=== PATIENT | male | born 1985 | race Caucasian/White ===

== ENCOUNTER → 2021-11-23 15:20 | Outpatient (CLI) | payer BC, SELFPAY ==
[2021-11-23 18:26] LABS: ALB/GLOB Ratio 1.1 RATIO (0.9-2.4); AST(SGOT) 123 U/L (15-37); Alanine Aminotransfer ALT/SGPT 303 U/L (16-61); Albumin, Serum 4.1 g/dL (3.2-5.0); Alkaline Phosphatase 62 U/L (45-117); Anion Gap 7 (5-15); BUN 12 mg/dL (7-18); Chloride 108 mmol/L (98-107); EST Glomerular Filtration Rate 89 mL/min (>60); Est Glom Filt Rate - Afr Amer 108 mL/min (>60); Ferritin 817 ng/mL (26-388); Globulin 3.7 g/dL (2.2-4.2); Glucose 91 mg/dL (74-106); Protein, Total 7.8 g/dL (6.4-8.2); Sodium Level 140 mmol/L (136-145)
[2021-11-25 13:07] LABS: ANTINUCLEAR ANTIBODIES DIRECT Negative (Negative)
[2021-11-25 22:54] LABS: AFP, Tumor Marker 4.4 ng/mL (0.0-8.3); Anti-Smooth Muscle ABS 23 Units (0-19)
[2021-11-25 22:55] LABS: Ceruloplasmin 21.2 mg/dL (16.0-31.0)
[2021-11-25 23:15] LABS: Alpha Antitrypsin Serum 119 mg/dL (95-164)
== END ==
PROVIDERS: PCP Family Medicine; Referring Provider Internal Medicine Gastroenterology; Visit Provider Internal Medicine Gastroenterology
DX: K75.9 Inflammatory liver disease, unspecified (principal)
CPT/HCPCS: 36415; 80053; 82103; 82105; 82390; 82728; 83516; 86038